=== PATIENT | male | born 1975 | race Caucasian/White ===

== ENCOUNTER 2018-01-29 13:44 | Inpatient (IN) | payer BC, OTHER ==
[~2018-01-29] VITALS: Ht 182.9 cm; Wt 136.1 kg
[2018-01-29] MEDS ORDERED: LORAZEPAM 2 MG/1 ML VIAL IM PRN (20:30)
[2018-01-29] MEDS ORDERED: DOCUSATE SODIUM 250 MG CAPSULE PO PRN (20:30)
[2018-01-29] MEDS ORDERED: LOPERAMIDE HCL 2 MG CAPSULE PO PRN ×2 (20:30)
[2018-01-29] MEDS ORDERED: ONDANSETRON ODT 4 MG TAB.RAPDIS SL PRN (20:30)
[2018-01-29] MEDS ORDERED: ONDANSETRON 4 MG/2 ML VIAL IM PRN (20:30)
[2018-01-29] MEDS ORDERED: LORAZEPAM 1 MG TABLET PO PRN (20:30)
[2018-01-29] MEDS ORDERED: MAGNESIUM HYDROXIDE 30 ML LIQUID UDC PO PRN (20:30)
[2018-01-29] MEDS ORDERED: hydrALAZINE HCL 50 MG TABLET PO PRN (20:30)
[2018-01-29] MEDS ORDERED: MAG HYDROX/AL HYDROX/SIMETH 30 ML LIQUID UDC PO PRN (20:30)
[2018-01-29] MEDS ORDERED: MIRALAX 17 GM POWD.PACK PO PRN (20:30)
--- NOTE | 2018-01-29 21:10 | NUR ---
Pre-admission assessment Patient is a 43-year old, male, seen at intake, AAOx4, no SOB and no anxiety noted at this time. Discussed with patient admission policies of the unit. Patient is coherent and able to respond to questions appropriately. Patient reported that he is homeless. Pt is ambulatory with steady gait. Pt reports consuming Vodka 1726-6399 ml daily x 2 years. Patient denies seizure history and reports being allergic to Iodine. Pt verbalized instructions and teachings regarding disposal of narcotic and other controlled home meds, unit protocols such as taking of vital signs Q4H and handling and disposal of contraband.
[2018-01-29 21:12] LABS: BASOPHILS # (AUTO) 0.1 K/uL (0.0-8.0); BASOPHILS % (AUTO) 1.2 % (0.0-2.0); EOSINOPHILS # (AUTO) 0.2 K/uL (0.0-0.7); EOSINOPHILS % (AUTO) 2.7 % (0.0-7.0); HEMATOCRIT 44.5 % (36.7-47.1); HEMOGLOBIN 15.5 g/dL (12.5-16.3); LYMPHOCYTES # (AUTO) 2.1 K/uL (20.0-40.0); LYMPHOCYTES % (AUTO) 24.1 % (20.5-51.5); MEAN CORPUSCULAR HEMOGLOBIN 34.7 uug (23.8-33.4); MEAN CORPUSCULAR HGB CONC 35 g/dL (32.5-36.3); MEAN CORPUSCULAR VOLUME 99.9 fL (73.0-96.2); MONOCYTES % (AUTO) 11.7 % (0.0-11.0); NEUTROPHILS # (AUTO) 5.2 K/uL (1.8-8.9); NEUTROPHILS % (AUTO) 60.3 % (38.5-71.5); PLATELET COUNT (AUTO) 338 K/uL (152-348); RED BLOOD CELL COUNT(AUTO) 4.45 MIL/uL (4.06-5.63); WHITE BLOOD COUNT (AUTO) 8.6 K/uL (3.6-10.2)
[2018-01-29 21:15] LABS: *AMPHETAMINE, URINE NEGATIVE (NEGATIVE); *BARBITURATE, URINE NEGATIVE (NEGATIVE); *CANNABINOID, URINE NEGATIVE (NEGATIVE); *COCCAINE, URINE NEGATIVE (NEGATIVE); *OPIATE, URINE NEGATIVE (NEGATIVE); *PHENCYCLIDINE SCREEN,URINE NEGATIVE (NEGATIVE)
[2018-01-29 21:22] LABS: BILIRUBIN,TOTAL 1.1 mg/dL (0.2-1.0); CREATININE 3.2 mg/dL (0.6-1.3); MAGNESIUM 1.9 mg/dL (1.8-2.4); POTASSIUM 3.8 mmol/L (3.5-5.1)
[2018-01-29 21:30] VITALS: BP 99/61
--- NOTE | 2018-01-29 21:30 | NUR ---
ADMISSION NOTE Pt arrived ambulatory from [facility] to the third floor accompanied by a SCHOOL LUNCH MONITOR at 2054. Pt is a 43 year old male admitted on 01/29/18 for ETOH withdrawal. Pt is full code with allergy to Iodine. He reports a PMHx of HTN, Hepatitis C one year ago, open heart surgery in 2007, and two open heart surgeries in 2014. He reports having a PCP by the name of Dr. Cruz in [place]. He brought in several home medications which have been reconciled. Pt reports a history of IV drug use but remains sober from that for 15 years. His longest sobriety from ETOH was for 6 months in 2014. He has been to treatment before in 2014. He states he is here because " I looked in the mirror, and I need to stop drinking for my health." He describes his current use as: 1. ETOH (vodka) 750-1100mL daily for 15 years but 3 years at this rate. Last dose: " few drinks on the plane" 01/29/18 at 1800. He describes his withdrawal symptoms as " nausea, vomiting, anxiety, chills and sweats" Upon assessment, pt is alert and oriented x4, speech is clear and audible. Pt noted to be anxious, restless, agitated, irritable, and flushed. He complains of nausea, appetite loss, chills, sensitivity to light and sound, and dizziness. Heart rate regular. Denies chest pain or SOB. PERRLA, breathing is even and unlabored, lung sounds clear. Abdomen is soft and non-distended. Bowel sounds present in all quadrants, last BM 01/28/18. Pt reports that BM is regular. Pt's skin is warm, dry and intact. MD aware of pt's admission. Pt oriented to room and unit. Safety measures in place. Will continue to monitor.
[2018-01-29] MEDS: LORAZEPAM 1 MG TABLET PO PRN (21:56)
--- NOTE | 2018-01-29 21:56 | NUR ---
PRN ATIVAN/ZOFRAN Pt complains of nausea, sweats, chills, anxiety, agitation, appetite loss and dizziness. Pt stated " I'm starting not to feel good." CIWA:8. PRN Ativan 1 mg and Zofran administered as ordered. Will monitor effectiveness.
[2018-01-29] MEDS: THIAMINE HCL 100 MG TABLET PO SCH (22:11)
[2018-01-29] MEDS ORDERED: POTA20TA10 PO (22:33)
[2018-01-29] MEDS ORDERED: AMOX500C2 PO (22:33)
[2018-01-29] MEDS ORDERED: ENAL10TA PO (22:33)
[2018-01-29] MEDS ORDERED: WARF7.5T23 PO (22:33)
[2018-01-29] MEDS ORDERED: ATOR40TA PO (22:33)
[2018-01-29] MEDS ORDERED: MULT1TAB73 PO (22:33)
[2018-01-29] MEDS ORDERED: GABA600T2 PO (22:33)
[2018-01-29] MEDS ORDERED: CARV12.52 PO (22:33)
[2018-01-29] MEDS ORDERED: SUCR1TAB PO (22:33)
[2018-01-29] MEDS ORDERED: OMEP40CA37 PO (22:34)
[2018-01-29] MEDS ORDERED: RANO500T3 PO (22:34)
[2018-01-29] MEDS ORDERED: ASPI-605 PO (22:34)
[2018-01-29] MEDS ORDERED: FURO40TA5 PO (22:34)
[2018-01-29] MEDS ORDERED: FERR325T28 PO (22:34)
--- NOTE | 2018-01-29 22:56 | NUR ---
PRN REASSESSMENT PRN medications effective. Pt is lying in bed with eyes closed noted to be asleep. Breathing is even and unlabored, safety measures in place. Will monitor effectiveness.
[2018-01-30] VITALS: BP 95/58
[2018-01-30 04:00] VITALS: BP 92/52
[2018-01-30] MEDS: IBUPROFEN 400 MG TABLET PO PRN (05:06)
--- NOTE | 2018-01-30 05:06 | NUR ---
PRN MOTRIN Pt complains of left knee pain 07/01. PRN Motrin administered as ordered. Breathing even and unlabored, safety measures in place. Will continue to monitor.
--- NOTE | 2018-01-30 06:06 | NUR ---
PRN MOTRIN REASSESSMENT PRN medication effective. Pt lying in bed with eyes closed noted to be asleep. No facial grimacing noted. Breathing even and unlabored, safety measures in place. Will continue to monitor.
--- NOTE | 2018-01-30 07:16 | NUR ---
END OF SHIFT Pt is a 43 year old male patient admitted on 01/29/18 for ETOH withdrawal. He remains alert and oriented x4. He is scheduled to start a 5 day Ativan taper today. At 2156 he received PRN Ativan for CIWA:8 and Zofran. At 0506 he received PRN Motrin. He slept a total of 7 hrs, Intake:500mL, Void: x1, BM:0, CIWA:8 at 2000. Breathing is even and unlabored, safety measures in place. Endorsed to AM shift.
--- NOTE | 2018-01-30 07:20 | NUR ---
Start of Shift Report received from overnight associate nurse. Pt is a 43 year old male patient admitted on 01/29/18 for ETOH withdrawal. Pts last CIWA 8. Upon assessment pt laying in room watching television. Upon greeting pt stated I feel my withdrawals coming on can I get my medication please? Pt appears disheveled, flushed and odorous, Pts room has clothes thrown on the floor, spilled drinks, and snack wraps. Pts expression is anxious worried with poor eye contact. Pt continues on the 5 day Ativan taper. Pt received PRN Ativan 1mg for CIWA of 8 and Zofran for nausea, medications effective per overnight associate nurse. Pt slept for 7 hours last night. Plan of care reviewed all needs met, all safety measures in place will continue to monitor.
[2018-01-30 08:00] VITALS: BP 121/64
[2018-01-30] MEDS ORDERED: PATIENT MAY USE OWN MED- MD OK PO SCH ×3 (09:00)
[2018-01-30] MEDS ORDERED: ENALAPRIL 10MG TABLET PO SCH (09:00)
[2018-01-30] MEDS ORDERED: TUBERCULIN,PURIF.PROT.DERIV. 5 TU/0.1 ML TEST ID ONE (09:00)
[2018-01-30] MEDS: FOLIC ACID 1 MG TABLET PO SCH (09:08)
[2018-01-30] MEDS: LORAZEPAM 1 MG TABLET PO SCH ×4 (09:08→20:10)
[2018-01-30] MEDS: MULTIVITAMINS,THERAPEUTIC TABLET PO SCH (09:08)
[2018-01-30] MEDS: THIAMINE HCL 100 MG TABLET PO SCH (09:08)
[2018-01-30] MEDS: ASPIRIN 81MG EC TABLET PO SCH (10:25)
[2018-01-30] MEDS: CARVEDILOL 12.5MG TABLET PO SCH ×2 (10:25→20:11)
[2018-01-30] MEDS: SUCRALFATE 1 GM PO SCH ×2 (10:31→16:47)
[2018-01-30 12:00] VITALS: BP 101/68
[2018-01-30] MEDS: KCL 20 MEQ PO SCH (12:14)
[2018-01-30 16:00] VITALS: BP 107/59
[2018-01-30] MEDS: PANTOPRAZOLE 40MG TABLET PO SCH (16:47)
[2018-01-30] MEDS: WARFARIN SODIUM 7.5 MG TABLET PO SCH (16:49)
[2018-01-30] MEDS ORDERED: WARFARIN SODIUM 7.5 MG TABLET PO SCH (17:00)
--- NOTE | 2018-01-30 18:59 | NUR ---
End Of Shift Report given to date night caregiver nurse, plan of care reviewed, VS monitored closely q 4 hours. Withdrawal symptoms were closely monitored, medications given as scheduled. CIWA 10. Patient encouraged adequate PO fluid intake as tolerated. Patient presented with tremors sweats, and anxiety during the day. Pt did not receive any PRN medications during the day. CIWA 8. Per patient Ativan have bas helping him with his withdrawal symptoms. Pt ate all of his meals, did not attend groups and activities due to weakness, pt was excused. Patient encouraged to attend all group therapies/sessions to learn new coping skills to recent relapse, patient denies SI/HI. all safety measures in place, bed in lowest locked position, call light within reach. All needs met and attended.
--- NOTE | 2018-01-30 19:30 | NUR ---
START OF SHIFT Received 43 year old male patient admitted on 01/29/18 for ETOH withdrawal. Pt is alert and oriented x4. He is noted with flushed face, anxiety, restlessness, irritability, clammy skin and complains of dizziness. Pt continues on a 5 day Ativan taper and is tolerating well. Per endorsement, he did not receive or request PRN medications. Last CIWA:8 at 1600. Breathing is even and unlabored, safety measures in place. Will monitor.
[2018-01-30 20:00] VITALS: BP 100/68
[2018-01-30] MEDS: ATORVASTATIN 40MG TABLET PO SCH (20:10)
[2018-01-30] MEDS: ACETAMINOPHEN 325 MG TABLET PO PRN (20:11)
--- NOTE | 2018-01-30 20:11 | NUR ---
PRN TYLENOL Pt complains of left knee pain 05/31. PRN Tylenol administered as ordered. Breathing even and unlabored, safety measures in place. Will monitor.
--- NOTE | 2018-01-30 21:11 | NUR ---
PRN TYLENOL REASSESSMENT PRN medication effective. Pt lying in bed with eyes closed noted to be asleep. No facial grimacing noted. Breathing even and unlabored, safety measures in place. Will monitor
[2018-01-31] VITALS: BP 100/55
[2018-01-31 04:00] VITALS: BP 115/59
[2018-01-31 05:06] LABS: HEPATITIS B SURFACE AG Negative (Negative)
[2018-01-31] MEDS: IBUPROFEN 400 MG TABLET PO PRN (05:22)
--- NOTE | 2018-01-31 05:22 | NUR ---
PRN MOTRIN Pt complains of left leg pain. PRN Motrin administered as ordered. Breathing even and unlabored, safety measures in place. Will monitor.
--- NOTE | 2018-01-31 06:22 | NUR ---
PRN REASSESSMENT PRN medication effective. Pt reports decrease in pain . Will continue to monitor.
[2018-01-31] MEDS: PANTOPRAZOLE 40MG TABLET PO SCH ×2 (06:53→16:36)
[2018-01-31] MEDS: SUCRALFATE 1 GM PO SCH ×3 (06:53→16:36)
[2018-01-31] MEDS: LORAZEPAM 1 MG TABLET PO PRN (07:01)
--- NOTE | 2018-01-31 07:03 | NUR ---
PRN ATIVAN Pt noted to be very anxious, tearful, irritable, agitated, and restless. Pt noted to be pacing the unit and complains of tremors. CIWA:11. PRN Ativan 1 mg administered as ordered. Will endorse to AM shift to reassess.
--- NOTE | 2018-01-31 07:30 | NUR ---
START OF SHIFT Rcvd endorse from ongoing nurse, client is in room, he is a/o to name, place, and situation. He presents with anxious mood, flat affect, gross tremors, clammy skin, flushed face, and difficulty concentrating, difficulty staying still, and loud voice. Client reports abdominal cramps, headache, feeling of panic, decreased appetite, restless legs, and fatigue. Encourage client to increase PO fluid as tolerated to facilitate detox. Encourage client to attend group therapy. PRN Benadryl 50mg PO for inability to sleep, client slept 9 hrs. Client is on 5 day Ativan taper (day 3). Last CIWA 10 @ 0400. Call light within reach.
--- NOTE | 2018-01-31 07:35 | NUR ---
END OF SHIFT Pt is a 43 year old male patient admitted on 01/29/18 for ETOH withdrawal. Pt remains alert and oriented x4. He was noted with flushed face, anxiety, restlessness, irritability, clammy skin and sensitivity to light and sound. He remained withdrawn and isolated to himself during shift. He continues on a 5 day Ativan taper and is tolerating well. He received PRN Tylenol at 2010 and PRN Motrin at 05. At 07 pt was noted with increased anxiety, tremors, sweats, and flushed face. He received PRN Ativan for CIWA: 11. He slept a total of 7 hrs, Intake: 1000mL, Void: x2, BM:0, CIWA:8 at 1999. Breathing is even and unlabored, safety measures in place. Will endorse.
[2018-01-31 08:03] VITALS: BP 114/77
[2018-01-31] MEDS: LORAZEPAM 1 MG TABLET PO SCH ×3 (08:17→20:52)
[2018-01-31] MEDS: THIAMINE HCL 100 MG TABLET PO SCH (08:17)
[2018-01-31] MEDS: FOLIC ACID 1 MG TABLET PO SCH (08:17)
[2018-01-31] MEDS: MULTIVITAMINS,THERAPEUTIC TABLET PO SCH (08:17)
[2018-01-31] MEDS: ASPIRIN 81MG EC TABLET PO SCH (08:19)
[2018-01-31] MEDS: KCL 20 MEQ PO SCH (08:19)
[2018-01-31] MEDS: CARVEDILOL 12.5MG TABLET PO SCH ×2 (08:19→20:52)
[2018-01-31 08:44] LABS: BILIRUBIN,DIRECT 0.3 mg/dL (0.0-0.2); BILIRUBIN,TOTAL 0.9 mg/dL (0.2-1.0); CREATININE 1.5 mg/dL (0.6-1.3); MAGNESIUM 1.9 mg/dL (1.8-2.4); POTASSIUM 4.4 mmol/L (3.5-5.1); TOTAL PROTEIN, SERUM 7.5 g/dL (6.4-8.2)
[2018-01-31] MEDS ORDERED: PNEUMOCOCCAL 23-VAL P-SAC VAC 0.5 ML VIAL IM ONE (09:00)
[2018-01-31] MEDS ORDERED: INFLUENZA VACCINE 2017-2018 0.5 ML DISP.SYRIN IM ONE (09:00)
--- NOTE | 2018-01-31 09:30 | NUR ---
Notified Client requests his Michele Addendum: 01/31/18 at 1009 by LUCAS PERRY RN Danica
[2018-01-31] MEDS ORDERED: NEUTRA PHOS PACKET PO ONE (11:00)
[2018-01-31 12:12] VITALS: BP 128/77
[2018-01-31] MEDS: RANEXA 500 MG PO SCH ×2 (12:54→16:07)
--- NOTE | 2018-01-31 16:18 | NUR ---
PRN administration: pt with complaints of chest discomfort/ heartburn scheduled renexa and mylanta given will re-assess effectiveness of medication
[2018-01-31] MEDS: WARFARIN SODIUM 7.5 MG TABLET PO SCH (16:38)
[2018-01-31 16:55] VITALS: BP 118/75
[2018-01-31] MEDS ORDERED: WARFARIN SODIUM 7.5 MG TABLET PO SCH (17:00)
--- NOTE | 2018-01-31 17:10 | NUR ---
Reassess PRN Maalox 30mL PO, client verbalizes relief from heartburn.
--- NOTE | 2018-01-31 19:15 | NUR ---
Start of Shift Note: Received patient from day shift nurse. Patient is a 43 y.o male admitted on 01/29/18 for medically supervised withdrawal from ETOH. Patient received in bed and noted with a flat affect, presented with flushed, moist/clammy skin, fine tremors & has a flat affect and has anxious/irritable mood. Patient is on day 2 of his 5-day Ativan taper and tolerating taper well. No adverse reactions noted. Last CIWA 15. Pt received PRN Maalox for heartburn during the day and was effective per report. Patient did not attend groups today. Patient needs further encouragement to attend groups to learn coping skills to prevent relapse. Encourage pt to increase fluid intake. Educated patient on current plan of care and verbalized understanding. Patient is stable at this time. Vitals noted WNL. Will continue to monitor patient.
--- NOTE | 2018-01-31 19:23 | NUR ---
END OF SHIFT Endorse to incoming nurse, client is in room, he is a/o x 4. He continues to present with anxious mood, flat affect, gross tremors, clammy skin, flushed face, abdominal cramps, headache, feeling of panic, decreased appetite, restless legs, and fatigue. Client was not compliant with group therapy d/t above withdrawal symptoms. Adequate PO fluid intake 3250mL, void x 4, stool x 3. Consumes 50% of meals. PRN Maalox 30mL for hearburn, noted effective. Last CIWA 15 @ 1600. Call light within reach.
[2018-01-31 20:00] VITALS: BP 106/53
[2018-01-31] MEDS: ATORVASTATIN 40MG TABLET PO SCH (20:52)
[2018-01-31] MEDS: TRAZODONE 50 MG TABLET PO PRN (21:16)
--- NOTE | 2018-01-31 21:16 | NUR ---
PRN Trazodone Patient unable to fall asleep and requesting medication. PRN Trazodone administered as ordered. Will monitor for effectiveness.
[2018-02-01] VITALS: BP 118/63
[2018-02-01] MEDS: PANTOPRAZOLE 40MG TABLET PO SCH ×2 (06:45→16:34)
[2018-02-01] MEDS: SUCRALFATE 1 GM PO SCH ×3 (06:45→16:34)
--- NOTE | 2018-02-01 07:15 | NUR ---
End of Shift Note: Patient is a 43 y.o male admitted on 01/29/18 for medically supervised withdrawal from ETOH. Patient had an uneventful night. Pt continues with his Ativan taper and tolerating well. Last CIWA is 11. Pt received PRN Trazodone during my shift and was effective. Vitals monitored closely. Continue to closely monitor s/s of withdrawals. Pt remained compliant with medications and treatment. Pt stable at this time. Encourage pt to increase fluid intake. Fluid intake: 1605 ml, Voided 3x with no bowel movement. Pt slept for a total of 7 hours. All needs attended & met. Safety measures in place. Will endorse pt to day shift nurse.
--- NOTE | 2018-02-01 07:40 | NUR ---
START OF SHIFT Rcvd endorse from ongoing nurse, client is in room, he is a/o x 4. He presents with anxious mood, agitated, flat affect, tremors, clammy skin, flushed face, and difficulty concentrating. Client reports headache, feeling of panic, decreased appetite, restless legs, and fatigue. Encourage client to increase PO fluid as tolerated to facilitate detox. Encourage client to attend group therapy. PRN Trazodone 50mg PO for inability to sleep, client slept 7 hrs. Client is on 5 day Ativan taper. Last CIWA 11 @ 1999. Call light within reach.
[2018-02-01 08:19] LABS: BILIRUBIN,DIRECT 0.3 mg/dL (0.0-0.2); BILIRUBIN,TOTAL 0.9 mg/dL (0.2-1.0); CREATININE 1.1 mg/dL (0.6-1.3); MAGNESIUM 1.9 mg/dL (1.8-2.4); PHOSPHOROUS 3.5 mg/dL (2.5-4.9); POTASSIUM 4.9 mmol/L (3.5-5.1); TOTAL PROTEIN, SERUM 7.7 g/dL (6.4-8.2)
[2018-02-01 08:55] VITALS: BP 134/76
[2018-02-01] MEDS ORDERED: FUROSEMIDE 40 MG TABLET PO SCH ×2 (09:00→21:00)
[2018-02-01] MEDS: RANEXA 500 MG PO SCH ×2 (09:02→22:02)
[2018-02-01] MEDS: KCL 20 MEQ PO SCH (09:02)
[2018-02-01] MEDS: ACETAMINOPHEN 325 MG TABLET PO PRN (09:02)
[2018-02-01] MEDS: CARVEDILOL 12.5MG TABLET PO SCH ×2 (09:02→22:02)
[2018-02-01] MEDS: ASPIRIN 81MG EC TABLET PO SCH (09:02)
[2018-02-01] MEDS: MULTIVITAMINS,THERAPEUTIC TABLET PO SCH (09:03)
[2018-02-01] MEDS: LORAZEPAM 1 MG TABLET PO SCH ×3 (09:03→16:35)
[2018-02-01] MEDS: FOLIC ACID 1 MG TABLET PO SCH (09:03)
[2018-02-01] MEDS: THIAMINE HCL 100 MG TABLET PO SCH (09:03)
[2018-02-01] MEDS ORDERED: TUBERCULIN,PURIF.PROT.DERIV. 5 TU/0.1 ML TEST ID ONE (10:00)
--- NOTE | 2018-02-01 10:23 | NUR ---
PPD Test administered to L forearm.
[2018-02-01 12:24] VITALS: BP 110/72
[2018-02-01] MEDS: KETOROLAC TROMETHAMINE 30 MG INJ IM PRN ×2 (13:46→22:02)
--- NOTE | 2018-02-01 13:46 | NUR ---
PRN Toradol 30mg IM administered to L deltoid for pain on L knee 05/31.
--- NOTE | 2018-02-01 14:16 | NUR ---
Reassess PRN Toradol 30mg, client reports decreased pain on L knee 12/29, but tolerable.
[2018-02-01] MEDS: WARFARIN SODIUM 7.5 MG TABLET PO SCH (16:35)
[2018-02-01] MEDS: FUROSEMIDE 40 MG TABLET PO SCH (16:54)
[2018-02-01 16:55] VITALS: BP 142/73
--- NOTE | 2018-02-01 18:54 | NUR ---
END OF SHIFT Endorse to incoming nurse, client is in room, he is a/o x 4. He continues to present with anxious mood, flat affect, gross tremors, clammy skin, flushed face, abdominal cramps, headache, feeling of panic, decreased appetite, restless legs, and fatigue. Client is compliant with 2/3 of group therapy. Adequate PO fluid intake 3954mL, void x 5, stool x 1. Consumes 50% of meals. PRN Toradol 30mg IM, for pain on L knee, noted effective. Last CIWA 12 @ 1600. Call light within reach.
--- NOTE | 2018-02-01 19:15 | NUR ---
Start of Shift Note: Received patient from day shift nurse. Patient is a 43 y.o male admitted on 01/29/18 for medically supervised withdrawal from ETOH. Patient is alert & oriented x4, ambulatory with a steady gait. Patient in bed and noted with a flat affect, presented with flushed, moist/clammy skin, fine tremors & has anxious/irritable mood. Patient also reports 7/10 pain on his left knee. Patient continues on his Ativan taper and tolerating taper well. No adverse reactions noted. Last CIWA 12. Pt received PRN PRN Tylenol, Motrin & Toradol during the day and was effective per report. Patient attended groups today. Patient remains compliant with medications, treatment and diet regimen. Encourage pt to increase fluid intake. Educated patient on current plan of care and verbalized understanding. Patient is stable at this time. Vitals noted WNL. Will continue to monitor patient.
[2018-02-01 20:00] VITALS: BP 118/73
[2018-02-01] MEDS ORDERED: LORAZEPAM 1 MG TABLET PO SCH (21:00)
[2018-02-01] MEDS: TRAZODONE 50 MG TABLET PO PRN (22:01)
[2018-02-01] MEDS: GABAPENTIN 300 MG CAPSULE PO SCH (22:01)
[2018-02-01] MEDS: ATORVASTATIN 40MG TABLET PO SCH (22:02)
--- NOTE | 2018-02-01 22:02 | NUR ---
PRN Trazodone & Toradol Patient complained of 7/10 pain on his left knee. Pt also requesting for medication to help him sleep. PRN Trazodone & Toradol administered as ordered. Will monitor for effectiveness of medication.
--- NOTE | 2018-02-01 23:02 | NUR ---
PRN Reassessment Pt still awake at this time. Pt verbalized decreased in pain from 7/10 to 3/10 after medication administration. safety measures in place. Will continue to monitor patient.
[2018-02-02] MEDS: SUCRALFATE 1 GM PO SCH ×3 (06:45→16:30)
--- NOTE | 2018-02-02 07:21 | NUR ---
End of Shift Note: Patient had an uneventful night. Pt continues with his Ativan taper and tolerating well. Pt continue to present with anxiety, agitation, fine tremors & sweating during my shift. Last CIWA is 11. Pt received PRN Trazodone for sleep and Toradol for left knee pain during my shift and were effective. Vitals monitored closely. Continue to closely monitor s/s of withdrawals. Pt remained compliant with medications and treatment. Continue to encourage pt to attend group activities to learn new coping skills to prevent relapse. Pt stable at this time. Encourage pt to increase fluid intake. Fluid intake: 950 ml, Voided 1x with no bowel movement. Pt slept for a total of 7 hours. All needs attended & met. Safety measures in place. Will endorse pt to day shift nurse.
--- NOTE | 2018-02-02 07:30 | NUR ---
START OF SHIFT Pt 43 y/o male admitted for etoh withdrawal. Pt received in room awake watching television. Pt alert and oriented to name, place, and time. Perrla. Skin warm and moist to touch. Respirations even and unlabored. Bilateral hand tremors noted. Pt anxious, not able to sit still. Pressured speech noted. Pt appears disheveled and unkempt. Clothes and empty water bottles scattered throughout the room. Encouraged to maintain hygiene. It was reported that pt slept for 7 hours last night. Last ciwa=11@2100 reported. Pt is on a 5 day ativan taper and is on day 3. Bed on lowest position with side rails x2 up for safety. Call light within reach.
[2018-02-02 07:58] LABS: CREATININE 1.4 mg/dL (0.6-1.3); MAGNESIUM 1.6 mg/dL (1.8-2.4); PHOSPHOROUS 4.9 mg/dL (2.5-4.9); POTASSIUM 4.3 mmol/L (3.5-5.1)
[2018-02-02 08:00] VITALS: BP 132/84
[2018-02-02] MEDS: RANEXA 500 MG PO SCH ×2 (08:17→20:17)
[2018-02-02] MEDS: ASPIRIN 81MG EC TABLET PO SCH (08:17)
[2018-02-02] MEDS: CARVEDILOL 12.5MG TABLET PO SCH ×2 (08:17→20:17)
[2018-02-02] MEDS: KCL 20 MEQ PO SCH (08:17)
[2018-02-02] MEDS: PANTOPRAZOLE 40MG TABLET PO SCH ×2 (08:17→16:30)
[2018-02-02] MEDS: FUROSEMIDE 40 MG TABLET PO SCH (08:18)
[2018-02-02] MEDS: FOLIC ACID 1 MG TABLET PO SCH (08:18)
[2018-02-02] MEDS: MULTIVITAMINS,THERAPEUTIC TABLET PO SCH (08:18)
[2018-02-02] MEDS: THIAMINE HCL 100 MG TABLET PO SCH (08:18)
[2018-02-02] MEDS ORDERED: LORAZEPAM 1 MG TABLET PO SCH ×2 (09:00→21:00)
[2018-02-02] MEDS: KETOROLAC TROMETHAMINE 30 MG INJ IM PRN ×2 (11:42→20:17)
--- NOTE | 2018-02-02 11:50 | NUR ---
PRN Pt states has pain of left knee aching 8/10. Toradol IM prn per MD order given and tolerated well.
[2018-02-02 12:00] VITALS: BP 118/83
[2018-02-02] MEDS ORDERED: MAGNESIUM OXIDE 400 MG TABLET PO ONE (12:00)
--- NOTE | 2018-02-02 12:50 | NUR ---
JES YBARRA Pt observed walking in the hallways. Pt states pain 01/29.
[2018-02-02] MEDS: LORAZEPAM 1 MG TABLET PO SCH (14:09)
[2018-02-02 16:00] VITALS: BP 140/89
[2018-02-02] MEDS ORDERED: WARFARIN SODIUM 10 MG TABLET PO ONE (17:00)
--- NOTE | 2018-02-02 19:01 | NUR ---
END OF SHIFT Pt 43 y/o male admitted for etoh withdrawal. Pt alert and oriented to name, place, and time. Perrla. Skin warm and moist to touch. Respirations even and unlabored. Bilateral hand tremors noted. Pt with periods of anxiety this morning. Pt appears disheveled and unkempt. Food wrappings and empty water bottles scattered throughout the room. Encouraged to maintain hygiene. Pt observed mostly isolative to throughout the day. Pt attended group activity today. Pt was seen by MD today. Pt medication compliant and tolerated well. No ASE noted. Ciwas=10@0800, 10@1200, and 10@1600. Pt is on a 5 day ativan taper and is on day 3. Bed on lowest position with side rails x2 up for safety. Call light within reach.
--- NOTE | 2018-02-02 19:15 | NUR ---
Start of Shift Note: Received patient from day shift nurse. Patient is alert & oriented x4, ambulatory with a steady gait. Patient in bed and noted with a blunt affect, presented with moist/clammy skin, fine tremors, reports 7/10 left knee pain & has anxious/irritable mood. Patient continues on his Ativan taper and tolerating taper well. No adverse reactions noted. Last CIWA 9. Pt received PRN PRN Toradol during the day and was effective per report. Patient attended groups today. Patient remains compliant with medications, treatment and diet regimen. Encourage pt to increase fluid intake. Educated patient on current plan of care and verbalized understanding. Patient is stable at this time. Vitals noted WNL. Will continue to monitor patient.
[2018-02-02 20:00] VITALS: BP 117/76
[2018-02-02] MEDS: ATORVASTATIN 40MG TABLET PO SCH (20:17)
[2018-02-02] MEDS: TRAZODONE 50 MG TABLET PO PRN (20:17)
--- NOTE | 2018-02-02 20:17 | NUR ---
PRN Trazodone & Toradol Patient reports 7/10 left knee pain. Pt noted to be restless & with facial grimacing noted. Pt also requesting for medication to help him sleep. PRN Trazodone & Toradol administered as ordered. Will monitor for effectiveness of medication.
[2018-02-02] MEDS: GABAPENTIN 300 MG CAPSULE PO SCH (20:40)
--- NOTE | 2018-02-02 21:00 | NUR ---
Non-administered medication Patient refused scheduled Gabapentin at this time. Pt stated " My legs are okay and I don't think I need it right now". Explained risk and Benefits but still refused. Will continue to monitor.
--- NOTE | 2018-02-02 21:17 | NUR ---
PRN Reassessment Pt still awake at this time. Pt verbalized decreased in pain from 7/10 to 3/10 after medication administration. Patient in bed and appears comfortable. No facial grimacing ntoed. Safety measures in place. Will continue to monitor patient.
[2018-02-03 04:15] VITALS: BP 127/85
[2018-02-03] MEDS: KETOROLAC TROMETHAMINE 30 MG INJ IM PRN (04:26)
--- NOTE | 2018-02-03 04:26 | NUR ---
PRN Toradol Patient wokeup with complaints of 8/10 left knee pain. Patient is restless in bed with facial grimacing noted. PRN requesting for Toradol medication. PRN Toradol IM administered as ordered. Will monitor for effectiveness.
--- NOTE | 2018-02-03 05:26 | NUR ---
PRN Reassessment Patient asleep in bed at this time and appears comfortable. No facial grimacing noted at this time. Safety measures in place. Will continue to monitor patient.
[2018-02-03] MEDS: PANTOPRAZOLE 40MG TABLET PO SCH ×2 (06:40→16:42)
[2018-02-03] MEDS: SUCRALFATE 1 GM PO SCH ×3 (06:40→16:42)
--- NOTE | 2018-02-03 06:59 | NUR ---
End of Shift Note: Patient had an uneventful night. Pt continues with his Ativan taper and tolerating well. Pt continue to present with anxiety, agitation, fine tremors & sweating during my shift. Last CIWA is 8. Pt received PRN Trazodone for sleep and Toradol x2 for left knee pain during my shift and were effective. Pt refused scheduled Gabapentin at 2100. Vitals monitored closely. Pt on Coumadin therapy. Will continue to monitor s/s of bleeding. Continue to closely monitor s/s of withdrawals. Pt remained compliant with medications, treatment & diet regimen. Pt stable at this time. Encourage pt to increase fluid intake. Fluid intake: 1000 ml, Voided 2x with no bowel movement. Pt slept for a total of 8 hours. All needs attended & met. Safety measures in place. Will endorse pt to day shift nurse.
[2018-02-03 07:43] LABS: CREATININE 1.4 mg/dL (0.6-1.3); MAGNESIUM 1.7 mg/dL (1.8-2.4); PHOSPHOROUS 4.3 mg/dL (2.5-4.9); POTASSIUM 4.5 mmol/L (3.5-5.1)
--- NOTE | 2018-02-03 07:45 | NUR ---
START OF SHIFT Rcvd endorse from ongoing nurse, client is in room, he is a/o x 4. Client presents with anxious mood, agitated, flat affect, fine tremors, clammy skin, flushed face, and difficulty concentrating. Client reports abdominal cramps, headache, sweats, cold/chills, sense of panic, decreased appetite, restless legs, and fatigue. Client denies suicidal/homicidal ideations. Encourage client to increase PO fluid as tolerated to facilitate detox. Encourage client to attend group therapy. PRN Toradol 30mg IM x 2 for pain on Left knee. Last CIWA 8 @ 0400. client slept 8 hrs. Client is on modified 6 day Ativan taper (day 5). Call light within reach.
[2018-02-03] MEDS: CARVEDILOL 12.5MG TABLET PO SCH ×2 (08:23→21:05)
[2018-02-03] MEDS: FUROSEMIDE 40 MG TABLET PO SCH (08:23)
[2018-02-03] MEDS: KCL 20 MEQ PO SCH (08:23)
[2018-02-03] MEDS: FOLIC ACID 1 MG TABLET PO SCH (08:24)
[2018-02-03] MEDS: THIAMINE HCL 100 MG TABLET PO SCH (08:24)
[2018-02-03] MEDS: ASPIRIN 81MG EC TABLET PO SCH (08:24)
[2018-02-03] MEDS: MULTIVITAMINS,THERAPEUTIC TABLET PO SCH (08:24)
[2018-02-03] MEDS: RANEXA 500 MG PO SCH ×2 (08:38→21:06)
[2018-02-03] MEDS: LORAZEPAM 1 MG TABLET PO SCH ×3 (08:53→21:04)
[2018-02-03 08:55] VITALS: BP 137/89
[2018-02-03] MEDS ORDERED: LORAZEPAM 1 MG TABLET PO SCH (09:00)
[2018-02-03] MEDS ORDERED: MAGNESIUM OXIDE 400 MG TABLET PO ONE (10:00)
--- NOTE | 2018-02-03 10:23 | NUR ---
Zero induration noted at PPD site on to L forearm.
[2018-02-03] MEDS ORDERED: METHYL SALICYLATE/MENTHOL CREAM 28 GM TUBE TOP PRN (10:45)
[2018-02-03] MEDS ORDERED: IBUPROFEN 600 MG TABLET PO PRN (10:45)
[2018-02-03 12:00] VITALS: BP 139/86
[2018-02-03] MEDS ORDERED: DIPH50CA37 PO (12:06)
[2018-02-03] MEDS ORDERED: GABA-534 PO (12:06)
[2018-02-03] MEDS ORDERED: IBUP-1955 PO (12:06)
[2018-02-03] MEDS ORDERED: FURO40TA5 PO (12:06)
[2018-02-03 13:13] LABS: *CREATININE,URINE 16.9 mg/dL (30-125)
[2018-02-03 16:55] VITALS: BP 145/86
[2018-02-03] MEDS ORDERED: WARFARIN SODIUM 10 MG TABLET PO ONE (17:00)
[2018-02-03] MEDS ORDERED: WARFARIN SODIUM 7.5 MG TABLET PO SCH (17:00)
--- NOTE | 2018-02-03 18:55 | NUR ---
END OF SHIFT Endorse client to incoming nurse, client is in room, he is a/o x 4. client continues to present with anxious mood, agitated, flat affect, tremors felt not observed, clammy skin, flushed face, sweats, cold/chills, sense of panic, decreased appetite, restless legs, and fatigue. INR 15.8, INR 1.52 Coumadin 15mg PO administered. Client is compliant with group therapy. Adequate PO fluid intake 3250mL, void x 10, stool x 1. Consumes 75% of meals. Last CIWA 12 @ 1600. Call light within reach.
--- NOTE | 2018-02-03 19:30 | NUR ---
Start of Shift Pt is a 43 y/o male admitted 01/29/18 for medically managed withdrawal/detox from ETOH. Pat On day 5 of a 6 day Ativan taper. Pt found in bed watching tv. Able to respond to questions and answer appropriately. Hand tremulous, forehead moist, CIWA calculated at 13. Requests Trazadone 50mg PO as sleep aid for insomnia with evening meds. Will continue to monitor patient, promptly attending to all needs.
[2018-02-03 20:00] VITALS: BP 128/73
[2018-02-03] MEDS: diphenhydrAMINE 50 MG CAPSULE PO PRN (21:04)
[2018-02-03] MEDS: GABAPENTIN 300 MG CAPSULE PO SCH (21:05)
[2018-02-03] MEDS: ATORVASTATIN 40MG TABLET PO SCH (21:06)
[2018-02-03] MEDS: TRAZODONE 50 MG TABLET PO PRN (21:08)
--- NOTE | 2018-02-03 21:08 | NUR ---
PRN Meds Benedryl 50mg PO and Trazadone 50mg PO given for insomnia per pt request. Will continue to monitor pt, reassess in 1 hour, and promptly attend to all pt needs.
--- NOTE | 2018-02-03 22:08 | NUR ---
PRN Med Reassessment Benedryl 50mg PO and Trazadone 50mg PO given for insomnia. Pt sleeping, RR 16 even and non-labored. Will continue to monitor pt, promptly attending to all pt needs.
--- NOTE | 2018-02-04 | NUR ---
VS's CIWA Deferred VS's CIWA deferred r/t pt sleeping/refused. RR 14 even and non-labored. Will continue to monitor patient, promptly attending to all needs
--- NOTE | 2018-02-04 04:00 | NUR ---
VS's CIWA Deferred 0400 VS's CIWA deferred r/t pt sleeping/refused. RR 14 even and non-labored. Will continue to monitor patient, promptly attending to all needs
[2018-02-04] MEDS: PANTOPRAZOLE 40MG TABLET PO SCH ×2 (06:41→16:39)
[2018-02-04] MEDS: SUCRALFATE 1 GM PO SCH ×3 (06:41→16:39)
--- NOTE | 2018-02-04 06:51 | NUR ---
End of Shift Pt is a 43 y/o male admitted 01/29/18 for medically managed withdrawal/detox from ETOH. Pat On day 6 of a 6 day Ativan taper. 1999 CIWA 13. Benedryl 50mg PO QHS PRN insomnia given wth 2100 meds for insomnia Pt slept for 8 hours during night with 500 intake and 1 void, 0 BM's. Will continue to monitor patient, promptly attending to all needs.
--- NOTE | 2018-02-04 07:20 | NUR ---
start of shift patient is 43 yr old male admitted to [facility] on 01/29/18 for withdrawal from alcohol. patient has a been on a 6 day ativan taper and this is day 6. prn meds required on PM shift : Trazadone and benadryl. Patient slept for 8 hours and last CIWA was 13 @8pm. Patient is walking in the hallways requesting to use the weight scale, per MD orders patient cannot weigh himself. patient presents as anxious and fidgety and pacing halls. will continue to monitor and follow MD orders.
[2018-02-04 08:00] VITALS: BP 117/87
[2018-02-04] MEDS: KCL 20 MEQ PO SCH (08:45)
[2018-02-04] MEDS: ASPIRIN 81MG EC TABLET PO SCH (08:45)
[2018-02-04] MEDS: CARVEDILOL 12.5MG TABLET PO SCH ×2 (08:45→20:25)
[2018-02-04] MEDS: FUROSEMIDE 40 MG TABLET PO SCH (08:45)
--- NOTE | 2018-02-04 08:45 | NUR ---
PRN MEDS TYLENOL 650MG PO AND MOTRIN 600MG PO GIVEN FOR KNEE PAIN DUE TO TORN MENISCUS 03/31, WILL REASSESS
[2018-02-04] MEDS: MULTIVITAMINS,THERAPEUTIC TABLET PO SCH (08:46)
[2018-02-04] MEDS: ACETAMINOPHEN 325 MG TABLET PO PRN (08:46)
[2018-02-04] MEDS: THIAMINE HCL 100 MG TABLET PO SCH (08:46)
[2018-02-04] MEDS: FOLIC ACID 1 MG TABLET PO SCH (08:46)
[2018-02-04] MEDS ORDERED: LORAZEPAM 1 MG TABLET PO SCH (09:00)
[2018-02-04] MEDS: RANEXA 500 MG PO SCH ×2 (09:31→20:25)
[2018-02-04 09:38] LABS: CREATININE 1.2 mg/dL (0.6-1.3); MAGNESIUM 1.9 mg/dL (1.8-2.4); POTASSIUM 4.2 mmol/L (3.5-5.1)
--- NOTE | 2018-02-04 09:45 | NUR ---
PRN REASSESS PATIENT STATES MEDICATIONS HAVE HELPED, PAIN LEVEL NOW 3/10 AND PATIENT WALKING LAPS FOR EXERCISE AROUND UNIT
[2018-02-04 12:00] VITALS: BP 146/90
[2018-02-04 16:00] VITALS: BP 148/94
[2018-02-04] MEDS ORDERED: WARFARIN SODIUM 7.5 MG TABLET PO SCH (17:00)
[2018-02-04] MEDS ORDERED: WARFARIN SODIUM 10 MG TABLET PO ONE (17:00)
--- NOTE | 2018-02-04 18:50 | NUR ---
End of shift patient is 43 yr old male admitted to [facility] on 01/29/18 for a medically supervised withdrawal from alcohol. patient has been on a 6 day Ativan taper which was completed today. PRN meds required on this shift : Tylenol and Motrin for knee pain. Patient continues to do laps around the unit during the day in effort to lose weight, he presents as anxious with a flat affect and worried expression , he has been compliant and attended all group sessions today and interacted with his peers. He had a fluid intake of 4000 ML,7 voids and 2 BM. Patient had a CIWA of 8 @ 1600. Patient is scheduled to be discharged tomorrow to " [facility] ". Continue to follow MD plan of care.
--- NOTE | 2018-02-04 19:30 | NUR ---
START OF SHIFT Received 43 year old male patient admitted on 01/29/18 for ETOH withdrawal. Pt is alert and oriented x4. Pt noted with anxiety, restlessness, agitation and flushed face. Pt completed his modified 6 day Ativan taper and tolerated well. He is scheduled to be DC to [facility] tomorrow. Per endorsement, he received PRN Motrin and Tylenol for knee pain. Last CIWA:8 at 1600. Breathing is even and unlabored, safety measures in place. Will continue to monitor.
[2018-02-04 20:00] VITALS: BP 147/82
[2018-02-04] MEDS: GABAPENTIN 300 MG CAPSULE PO SCH (20:24)
[2018-02-04] MEDS: TRAZODONE 50 MG TABLET PO PRN (20:24)
--- NOTE | 2018-02-04 20:24 | NUR ---
PRN TRAZODONE Pt complains of difficulty sleeping. PRN Trazodone administered as ordered. Will monitor effectiveness.
[2018-02-04] MEDS: ATORVASTATIN 40MG TABLET PO SCH (20:25)
--- NOTE | 2018-02-04 21:24 | NUR ---
PRN TRAZODONE REASSESSMENT PRN medication ineffective. Pt still reports difficulty falling asleep.
[2018-02-04] MEDS: diphenhydrAMINE 50 MG CAPSULE PO PRN (21:49)
--- NOTE | 2018-02-04 21:49 | NUR ---
PRN BENADRYL Pt complains of insomnia. PRN Trazodone not effective. PRN Benadryl administered as ordered. Will monitor effectiveness.
--- NOTE | 2018-02-04 22:49 | NUR ---
PRN BENADRYL REASSESSMENT PRN medication effective. Pt lying in bed with eyes closed noted to be asleep. Breathing is even and unlabored, safety measures in place. Will continue to monitor.
--- NOTE | 2018-02-05 | NUR ---
VITALS REFUSED, CIWA DEFERRED 0000 vitals refused. CIWA deferred d/t pt lying in bed with eyes closed noted to be asleep. Breathing is even and unlabored, safety measures in place. Will monitor.
--- NOTE | 2018-02-05 04:00 | NUR ---
VITALS REFUSED, CIWA DEFERRED 0400 vitals refused. CIWA deferred d/t pt lying in bed with eyes closed noted to be asleep. Breathing is even and unlabored, safety measures in place. Will continue to monitor.
[2018-02-05 05:11] VITALS: BP 107/53
[2018-02-05] MEDS: ACETAMINOPHEN 325 MG TABLET PO PRN (05:11)
--- NOTE | 2018-02-05 05:11 | NUR ---
PRN TYLENOL Pt complains of headache 03/31. PRN Tylenol administered as ordered. Safety measures in place. Will continue to monitor effectiveness.
--- NOTE | 2018-02-05 06:11 | NUR ---
PRN REASSESSMENT Medication effective. Pt lying in bed with eyes closed noted to be asleep. Breathing even and unlabored, safety measures in place. Will monitor.
[2018-02-05] MEDS: SUCRALFATE 1 GM PO SCH (06:49)
[2018-02-05] MEDS: PANTOPRAZOLE 40MG TABLET PO SCH (06:49)
--- NOTE | 2018-02-05 07:00 | NUR ---
END OF SHIFT Pt is a 43 year old male patient admitted on 01/29/18 for ETOH withdrawal. Pt remains alert and oriented x4. Pt was noted with anxiety, restlessness, agitation and flushed face during the shift. He is scheduled to be DC today to [facility]. At 2023 he received PRN Trazodone. At 2148 he received PRN Benadryl and at 510 he received PRN Tylenol for headache. He slept a total of 6 hrs, Intake: 1,500mL, Void: x4, BM:0, CIWA:7 at 1999. Breathing is even and unlabored, safety measures in place. Endorsed to AM shift.
--- NOTE | 2018-02-05 07:15 | NUR ---
start of shift patient is 43 yr old male admitted to [facility] on 01/29/18 for withdrawal from alcohol. patient has completed a 6 day ativan taper and is ready to discharge this morning. prn meds required on PM shift : Trazadone, tylenol and benadryl. Patient slept for 6 hours and last CIWA was 7 @8pm. will continue to monitor and follow MD discharge orders.
[2018-02-05 08:00] VITALS: BP 144/83
[2018-02-05] MEDS: ASPIRIN 81MG EC TABLET PO SCH (08:03)
[2018-02-05] MEDS: THIAMINE HCL 100 MG TABLET PO SCH (08:03)
[2018-02-05] MEDS: RANEXA 500 MG PO SCH (08:03)
[2018-02-05] MEDS: MULTIVITAMINS,THERAPEUTIC TABLET PO SCH (08:03)
[2018-02-05] MEDS: FOLIC ACID 1 MG TABLET PO SCH (08:03)
[2018-02-05] MEDS: CARVEDILOL 12.5MG TABLET PO SCH (08:03)
[2018-02-05] MEDS: FUROSEMIDE 40 MG TABLET PO SCH (08:03)
[2018-02-05] MEDS: KCL 20 MEQ PO SCH (08:04)
--- NOTE | 2018-02-05 09:40 | NUR ---
DISCHARGE NOTE PATIENT DISCHARGED AT 0940 AM, ALL PAPERWORK SIGNED AND DATED, ALL PERSONAL BELONGINGS, PRESCRIPTIONS AND HOME MEDS RETURNED TO PATIENT. VITAL SIGNS STABLE 144/83 BP 78 HR 97.4 T PATIENT DENIES ANY SI/HI. PATIENT AMBULATED OFF THE UNIT AND WAS PICKED UP IN HOSPITAL LOBBY BY "[employer] " PRIVATE CAR TO BE DRIVEN TO " [facility] ".
[2018-02-05] MEDS ORDERED: WARFARIN SODIUM 7.5 MG TABLET PO SCH (17:00)
== END 2018-02-05 09:40 | disposition other institution (70) | DRG 895 ==
LOC: SRC 19:43
PROVIDERS: ADMIT Internal Medicine; ATTEND Internal Medicine
PROC: HZ2ZZZZ Detoxification Services for Substance Abuse Treatment (ICD-10-PCS; principal; 2018-01-29)
PROC: HZ41ZZZ Group Counseling for Substance Abuse Treatment, Behavioral (ICD-10-PCS; 2018-01-31)
PROC: HZ31ZZZ Individual Counseling for Substance Abuse Treatment, Behavioral (ICD-10-PCS; 2018-02-01)
DX: F10.230 Alcohol dependence with withdrawal, uncomplicated (principal); N17.9 Acute kidney failure, unspecified; D68.59 Other primary thrombophilia; E87.2 Acidosis; E83.42 Hypomagnesemia; E83.39 Other disorders of phosphorus metabolism; I50.22 Chronic systolic (congestive) heart failure; I42.6 Alcoholic cardiomyopathy; E87.1 Hypo-osmolality and hyponatremia; E87.8 Other disorders of electrolyte and fluid balance, not elsewhere classified; I11.0 Hypertensive heart disease with heart failure; K70.10 Alcoholic hepatitis without ascites; K29.20 Alcoholic gastritis without bleeding; Y90.9 Presence of alcohol in blood, level not specified; Z95.2 Presence of prosthetic heart valve; E78.5 Hyperlipidemia, unspecified; F14.21 Cocaine dependence, in remission; Z91.89 Other specified personal risk factors, not elsewhere classified; Z81.1 Family history of alcohol abuse and dependence; Z80.9 Family history of malignant neoplasm, unspecified; G47.00 Insomnia, unspecified; Z79.01 Long term (current) use of anticoagulants; T50.2X5A Adverse effect of carbonic-anhydrase inhibitors, benzothiadiazides and other diuretics, initial encounter; Y92.019 Unspecified place in single-family (private) house as the place of occurrence of the external cause; Z20.5 Contact with and (suspected) exposure to viral hepatitis; R73.9 Hyperglycemia, unspecified; E86.1 Hypovolemia
CPT/HCPCS: 36415; 70030-TC; 80307; 83735; 84100; 84520; 85025; 85610; 86580; 86592; 86705; 86803; 87340; 87806; 90686; 90732; A4663; G0480; J1885; Q0162; Q0163